=== PATIENT | female | born 1980 | race Caucasian/White ===

== ENCOUNTER 2017-05-20 06:14 | Emergency (ER) | payer OTHER, SELFPAY ==
[2017-05-20 07:00] LABS: Hematocrit 40.9 % (36.0-47.0); Red Blood Cell (RBC) Count 4.66 mill/uL (4.20-5.40)
[2017-05-20 07:16] LABS: Band 11 % (5-11); Neutrophil 80 % (42-75); Toxic Granulation SLIGHT
[2017-05-20 07:17] LABS: ALT (SGPT) 29 U/L (8-55); AST (SGOT) 39 U/L (5-34); Alkaline Phosphatase 113 U/L (40-150); Anion Gap 17 mmol/L (10-20); BUN (Urea Nitrogen) 11 mg/dL (7.0-18.7); Calc. Creatinine Clearance 0 mL/min (70-130); Calcium 8.8 mg/dL (7.8-10.44); Carbon Dioxide 21 mmol/L (22-29); Chloride 104 mmol/L (98-107); Estimated GFR-MDRD 74; Globulin 4.1 g/dL (2.4-3.5); Lipase 10 U/L (8-78); Protein, Total 7.9 g/dL (6.0-8.3)
[2017-05-20] MEDS ORDERED: Ondansetron HCl/PF 4 MG/2 ML Vial ONE (07:19)
[2017-05-20 08:03] LABS: Bilirubin Negative (Negative); Blood, Urine Negative (Negative); Glucose, Urine (Dipstick) Negative (Negative); Ketone, Urine Negative (Negative); Nitrite Negative (Negative); Protein, Urine (Dipstick) 30 mg/dL (Neg-Trace); Urobilinogen 0.2 mg/dL (0.2-1.0)
[2017-05-20 08:13] LABS: Bacteria/HPF 2+ HPF (None Seen); RBC/HPF 0-3 HPF (0-3); WBC/HPF 0-3 HPF (0-3)
[2017-05-20] MEDS ORDERED: Iopamidol 370 76% 100 ML VIAL ONE (09:00)
--- NOTE | 2017-05-20 10:23 | CT ---
CT ABDOMEN AND PELVIS WITH ORAL AND IV COTNRAST: HISTORY: Upper abdominal pain, periumbilical and right lower quadrant pain. FINDINGS: The lung bases are unremarkable. The liver, pancreas, adrenal glands, and kidneys are normal. The spleen is enlarged measuring 14 cm in AP dimension. No calcified gallstones are noted. No free air , free fluid, or lymphadenopathy is seen. The small bowel loops are not abnormally dilated. The ap pendix is normal. Uterus and ovaries are present. No acute osseous abnormalities are seen. A 2.4 cm right ovarian cyst is present. IMPRESSION: 1. No acute process. 2. Splenomegaly. POS: [facility]
--- NOTE | 2017-05-20 11:47 | ULT ---
PELVIC ULTRASOUND: Comparison: CT abdomen/pelvis, 05-20-17. History: Upper abdominal pain with nausea and vomiting. Abnormal CT. Evaluation for ovarian torsion. Technique: Multiplanar grayscale and color doppler images were obtained in a transabdominal and connors svaginal pelvic ultrasound. Spectral analysis of the doppler waveforms were performed. FINDINGS: The uterus is normal in size without focal abnormality. The endometrial strip is normal in thickness measuring 8 mm. The left ovary was not identified. The right ovary was visualized and contains a dominant follicle m easuring 2.3 cm in size. Normal flow is seen within the right ovary. IMPRESSION: No evidence of right ovarian torsion. POS: [facility]
== END 2017-05-20 12:04 | disposition home or self-care (01) ==
LOC: SCSER 06:14
DX: R10.31 Right lower quadrant pain (principal); D72.829 Elevated white blood cell count, unspecified; R16.1 Splenomegaly, not elsewhere classified; R19.7 Diarrhea, unspecified; R11.0 Nausea; E03.9 Hypothyroidism, unspecified; F17.210 Nicotine dependence, cigarettes, uncomplicated
CPT/HCPCS: 74177; 76856; 80053; 81003; 81015; 83690; 84703; 85025; 87480; 87491; 87510; 87591; 87660; 96361; 96374; J2405

== ENCOUNTER 2017-08-07 17:26 | Emergency (ER) | payer SELFPAY ==
[2017-08-07 17:58] LABS: Bilirubin Negative (Negative); Blood, Urine Moderate (Negative); Clarity CLOUDY (Clear); Glucose, Urine (Dipstick) Negative (Negative); Leukocyte Large (Negative); Nitrite Negative (Negative); Protein, Urine (Dipstick) Negative (Neg-Trace); Specific Gravity, Urine 1.012 (1.002-1.036); Urobilinogen 0.2 mg/dL (0.2-1.0)
[2017-08-07 18:02] LABS: Bacteria/HPF 2+ HPF (None Seen); Hyaline Casts/LPF 0-3 HYALINE CAST LPF (0-3 Hyaline); Pathc Cast-AUWi Flag 0.27 (0-2.49); Squamous Epithelial 0-3 HPF (0-3); WBC/HPF 21-50 HPF (0-3)
== END 2017-08-07 18:42 | disposition home or self-care (01) ==
LOC: ERS 17:26
DX: N39.0 Urinary tract infection, site not specified (principal); E03.9 Hypothyroidism, unspecified; Z79.899 Other long term (current) drug therapy
CPT/HCPCS: 81003; 81015; 87077; 87086; 99283

== ENCOUNTER 2018-01-27 18:20 | Emergency (ER) | payer SELFPAY | END 2018-01-27 19:59 | disposition home or self-care (01) | LOC: ERS 18:20 | DX: S39.012A Strain of muscle, fascia and tendon of lower back, initial encounter (principal); E03.9 Hypothyroidism, unspecified; Z79.899 Other long term (current) drug therapy; X58.XXXA Exposure to other specified factors, initial encounter | CPT/HCPCS: 99283 ==

== ENCOUNTER 2018-07-29 16:55 | Emergency (ER) | payer MEDICAID, SELFPAY | END 2018-07-29 18:30 | disposition home or self-care (01) | LOC: ERS 16:55 | DX: J06.9 Acute upper respiratory infection, unspecified (principal); E03.9 Hypothyroidism, unspecified | CPT/HCPCS: 87081; 87430; 99283 ==

== ENCOUNTER 2019-02-21 21:32 | Emergency (ER) | payer SELFPAY ==
[2019-02-21 21:51] LABS: #Eosinphils 0.1 thou/uL (0.0-0.7); #Lymphocytes 1.2 thou/uL (1.20-3.40); #Monocytes 0.7 thou/uL (0.11-0.59); #Neutrophils 13.5 thou/uL (1.40-6.50); %Basophils 0.2 % (0.0-1.0); %Eosinophils 0.4 % (0.0-10.0); %Lymphocytes 7.5 % (21.0-51.0); %Monocytes 4.8 % (0.0-10.0); %Neutrophils 87.1 % (42.0-75.0); Hemoglobin 12.6 g/dL (12.0-16.0); Mean Corpuscular HGB CONC 32.1 g/dL (32.0-36.0); Mean Corpuscular Hemoglobin 26.8 pg (27.0-31.0); Mean Corpuscular Volume 83.3 fL (78.0-98.0); Mean Platelet Volume 6.6 fL (7.4-10.4); Platelet Count 289 thou/uL (130-400); RBC Distribution Width 13.1 % (11.5-14.5); White Blood Cell (WBC) Count 15.5 thou/uL (4.8-10.8)
[2019-02-21 22:18] LABS: ALT (SGPT) 28 U/L (8-55); AST (SGOT) 28 U/L (5-34); Albumin 4.2 g/dL (3.5-5.0); Alkaline Phosphatase 91 U/L (40-150); Anion Gap 13 mmol/L (10-20); BUN (Urea Nitrogen) 12 mg/dL (7.0-18.7); Bilirubin, Total 1.2 mg/dL (0.2-1.2); Calc. Creatinine Clearance 0 mL/min (70-130); Calcium 8.7 mg/dL (7.8-10.44); Carbon Dioxide 23 mmol/L (22-29); Chloride 104 mmol/L (98-107); Estimated GFR-MDRD Greater than 90; Globulin 3.3 g/dL (2.4-3.5); Glucose 115 mg/dL (70-105); Lipase 12 U/L (8-78); Potassium 3.9 mmol/L (3.5-5.1); Protein, Total 7.5 g/dL (6.0-8.3); Sodium 136 mmol/L (136-145)
[2019-02-21] MEDS ORDERED: Ondansetron PF 4 MG/2 ML Vial ONE (22:45)
[2019-02-21 23:17] LABS: BHCG - Serum Negative (NEGATIVE); Pregs Control Background? CLEAR/WHITE (CLR/WHITE); Pregs Control Bar Appear? YES (CONTROL BAR)
== END 2019-02-21 23:39 | disposition home or self-care (01) ==
LOC: ERS 21:32
DX: R11.2 Nausea with vomiting, unspecified (principal); R19.7 Diarrhea, unspecified
CPT/HCPCS: 36415; 80053; 83690; 84703; 85025; 96361; 96374; J2405

== ENCOUNTER 2019-02-24 14:09 | Emergency (ER) | payer SELFPAY ==
[2019-02-24 14:49] LABS: #Eosinphils 0.1 thou/uL (0.0-0.7); #Lymphocytes 1.9 thou/uL (1.20-3.40); #Monocytes 0.8 thou/uL (0.11-0.59); #Neutrophils 7.3 thou/uL (1.40-6.50); %Basophils 0.1 % (0.0-1.0); %Eosinophils 1.3 % (0.0-10.0); %Monocytes 7.7 % (0.0-10.0); %Neutrophils 71.8 % (42.0-75.0); Hemoglobin 11.5 g/dL (12.0-16.0); Mean Corpuscular HGB CONC 32.8 g/dL (32.0-36.0); Mean Corpuscular Hemoglobin 27.2 pg (27.0-31.0); Mean Corpuscular Volume 83.1 fL (78.0-98.0); Mean Platelet Volume 6.9 fL (7.4-10.4); Platelet Count 239 thou/uL (130-400); RBC Distribution Width 13.2 % (11.5-14.5); Red Blood Cell (RBC) Count 4.21 mill/uL (4.20-5.40); White Blood Cell (WBC) Count 10.2 thou/uL (4.8-10.8)
[2019-02-24 14:55] LABS: BHCG - Serum Negative (NEGATIVE); Pregs Control Background? CLEAR/WHITE (CLR/WHITE); Pregs Control Bar Appear? YES (CONTROL BAR)
--- NOTE | 2019-02-24 15:05 | RAD ---
CHEST 2 VIEWS: Date: 02/24/19 HISTORY: Chest pressure, abnormal EKG. COMPARISON: 02/08/07. FINDINGS: Heart size is within normal limits. The lungs are clear. No pneumonia, edema, pleural effusion, or ot her acute process. IMPRESSION: No acute intrathoracic disease. POS: [facility]
[2019-02-24 15:11] LABS: ALT (SGPT) 49 U/L (8-55); AST (SGOT) 42 U/L (5-34); Alkaline Phosphatase 85 U/L (40-150); Anion Gap 12 mmol/L (10-20); BUN (Urea Nitrogen) 8 mg/dL (7.0-18.7); Bilirubin, Total 0.7 mg/dL (0.2-1.2); Calc. Creatinine Clearance 0 mL/min (70-130); Calcium 8.6 mg/dL (7.8-10.44); Carbon Dioxide 23 mmol/L (22-29); Chloride 107 mmol/L (98-107); Estimated GFR-MDRD 89; Globulin 3.1 g/dL (2.4-3.5); Glucose 75 mg/dL (70-105); Potassium 3.5 mmol/L (3.5-5.1); Protein, Total 7.1 g/dL (6.0-8.3); Sodium 138 mmol/L (136-145)
== END 2019-02-24 15:39 | disposition home or self-care (01) ==
LOC: ERS 14:09
DX: R07.89 Other chest pain (principal); E03.9 Hypothyroidism, unspecified; F41.9 Anxiety disorder, unspecified; F32.9 Major depressive disorder, single episode, unspecified
CPT/HCPCS: 36415; 71046; 80053; 83880; 84484; 84703; 85025; 93005

== ENCOUNTER 2019-05-12 20:37 | Emergency (ER) | payer SELFPAY ==
--- NOTE | 2019-05-12 21:34 | RAD ---
RADIOGRAPH CHEST 2 VIEWS: DATE: 05/12/2019 HISTORY: 38-year-old female with cough FINDINGS: There is no airspace density, pulmonary edema, pleural effusion, pneumothorax, or cardiomegaly. IMPRESSION: No acute cardiopulmonary findings.
== END 2019-05-12 21:42 | disposition home or self-care (01) ==
LOC: ERS 20:37
DX: J20.9 Acute bronchitis, unspecified (principal); E03.9 Hypothyroidism, unspecified; F41.9 Anxiety disorder, unspecified; F32.9 Major depressive disorder, single episode, unspecified
CPT/HCPCS: 71046

== ENCOUNTER 2019-05-18 11:59 | Outpatient (CLI) | payer OTHER ==
--- NOTE | 2019-05-18 13:16 | RAD ---
PA AND LATERAL CHEST: Date: 05/18/19 HISTORY: Cough and wheezing. COMPARISON: 05/12/19. FINDINGS: Heart size and mediastinum are within normal limits. Lungs are clear of infiltrates. There are no sig nificant bony findings. IMPRESSION: No active intrathoracic disease. POS: [facility]
== END 2019-05-18 12:00 | disposition home or self-care (01) ==
LOC: BICRAD 11:59
PROVIDERS: ATTEND Family Medicine
DX: J18.9 Pneumonia, unspecified organism (principal)
CPT/HCPCS: 71046

== ENCOUNTER 2020-10-22 08:53 | Emergency (ER) | payer OTHER ==
[2020-10-22] MEDS ORDERED: Dexamethasone 4 MG TAB ONE (09:12)
== END 2020-10-22 09:15 | disposition home or self-care (01) ==
LOC: ERS 08:53
DX: J30.2 Other seasonal allergic rhinitis (principal); E03.9 Hypothyroidism, unspecified; Z85.41 Personal history of malignant neoplasm of cervix uteri
CPT/HCPCS: 99283; J8540